=== PATIENT | male | born 2005 | race African-American/Black ===

== ENCOUNTER 2024-12-28 19:44 | Inpatient (IN) | payer OTHER ==
[~2024-12-28] VITALS: Ht 175.3 cm; Wt 70.0 kg
[2024-12-28 20:38] LABS: PLATELET COUNT, AUTOMATED 236 10^3/uL (150-450)
[2024-12-28 20:50] LABS: ETHYL ALCOHOL (ETHANOL) < 0.003 % (0.000-0.010)
[2024-12-28 20:52] LABS: SALICYLATE LEVEL < 3.0 MG/DL (<30)
[2024-12-28 20:53] LABS: ALT/SGPT 22 U/L (7.0-40); AST/SGOT 27 U/L (<34); CALCIUM LEVEL 9.0 MG/DL (8.5-10.1); CARBON DIOXIDE LEVEL 24 MMOL/L (20-31); CHLORIDE LEVEL 108 MMOL/L (98-107); CREATININE FOR GFR 0.91 MG/DL (0.70-1.30); GLOMERULAR FILTRATION RATE > 90.0 (>60); POTASSIUM SERUM 3.9 MMOL/L (3.5-5.1); SODIUM LEVEL 142 MMOL/L (136-145)
[2024-12-28 21:52] LABS: AMPHETAMINES LEVEL URINE NEGATIVE (NEGATIVE); BARBITURATES URINE NEGATIVE (NEGATIVE); BENZODIAZEPINES URINE NEGATIVE (NEGATIVE); COCAINE METABOLITE URINE NEGATIVE (NEGATIVE); METHADONE URINE NEGATIVE (NEGATIVE); OPIATES URINE NEGATIVE (NEGATIVE)
[2024-12-28 21:53] LABS: CANNABINOIDS URINE NEGATIVE (NEGATIVE); PHENCYCLIDINE URINE NEGATIVE (NEGATIVE)
[2024-12-29] MEDS ORDERED: HOME MED LIST COMPLETE! XX SCH
[2024-12-29] MEDS ORDERED: traZODone 50 MG TAB PO PRN (12:45)
[2024-12-29] MEDS ORDERED: IBUPROFEN 400 MG TAB PO PRN (12:45)
[2024-12-29] MEDS ORDERED: MOM 30 ML SUSPENSION UDC PO PRN (12:45)
[2024-12-29] MEDS ORDERED: MAALOX 30 ML SUSP *UDC PO PRN (12:45)
[2024-12-29] MEDS ORDERED: ACETAMINOPHEN 325 MG TAB PO PRN (12:45)
[2024-12-29 14:08] VITALS: BP 135/62; TEMP 97.9; O2SAT 100
[2024-12-30 06:27] VITALS: BP 101/54; TEMP 97.8; O2SAT 99
[2024-12-30] MEDS: SERTRALINE HCL 50 MG TAB PO SCH (09:48)
[2024-12-30 15:11] VITALS: BP 122/56; TEMP 100; O2SAT 100
[2024-12-31 06:32] VITALS: BP 108/51; TEMP 97.9; O2SAT 100
[2024-12-31 14:49] VITALS: BP 115/72; TEMP 97.5; O2SAT 100
[2025-01-01 06:34] VITALS: BP 104/56; TEMP 97.9; O2SAT 99
[2025-01-01 15:02] VITALS: BP 129/67; TEMP 97.9; O2SAT 97
[2025-01-02] MEDS ORDERED: SERT50TA29 PO (01:23)
[2025-01-02] MEDS ORDERED: HYDR-3363 PO (01:23)
[2025-01-02] MEDS ORDERED: TRAZ-252 PO (01:23)
[2025-01-02 06:27] VITALS: BP 137/58; TEMP 97.9; O2SAT 100
== END 2025-01-02 10:06 | disposition home or self-care (01) | DRG 885 ==
LOC: M ED 19:44 → M ED INP 12-29 12:44 → M PSY 12-29 14:09
PROVIDERS: ADMIT Psychiatry & Neurology Addiction Psychiatry; ATTEND Internal Medicine
DX: F33.1 Major depressive disorder, recurrent, moderate (principal); R45.851 Suicidal ideations; F41.9 Anxiety disorder, unspecified